=== PATIENT | male | born 1995 | race Caucasian/White ===

== ENCOUNTER 2023-05-08 02:19 | Emergency (ER) | payer SELFPAY ==
[~2023-05-08] VITALS: Ht 165.1 cm; Wt 65.8 kg
[2023-05-08 02:23] VITALS: O2SAT 98
[2023-05-08] MEDS ORDERED: ACETAMINOPHEN 325MG TABLET PO ONE (08:30)
[2023-05-08] MEDS ORDERED: TETANUS, DIPHTHERIA, PERTUSSIS VAC/PF 0.5ML (>10YR OLD) IM ONE (08:30)
[2023-05-08 12:04] VITALS: BP 115/66; PULSE 69; RESP 20; TEMP 98.4
== END 2023-05-08 12:06 | disposition home or self-care (01) ==
LOC: ER 03:18
DX: S02.2XXA Fracture of nasal bones, initial encounter for closed fracture (principal); Y08.89XA Assault by other specified means, initial encounter; Y93.89 Activity, other specified; Y92.89 Other specified places as the place of occurrence of the external cause; Y99.8 Other external cause status
CPT/HCPCS: 70450; 70486; 72125; 90715; 12013; 90471; 99285; Z7610